=== PATIENT | female | born 1940 | race Caucasian/White ===

== ENCOUNTER 2022-09-15 15:52 | Inpatient (IN) ==
[2022-09-16] MEDS ORDERED: MAGNESIUM SULF RIDER 4 GM/100 ML PREMIX IV PRN (01:35)
[2022-09-16] MEDS ORDERED: MAGNESIUM SULF RIDER 2 GM/50 ML PREMIX IV PRN (01:35)
[2022-09-16] MEDS ORDERED: ONDANSETRON 4 MG/2 ML VIAL IV PRN (01:35)
[2022-09-16] MEDS: cefTRIAXone 1,000 MG in SODIUM CHLORIDE 0.9% 100 ML IV SCH (03:41)
[2022-09-16 07:07] LABS: Basophils % 0.3 % (0.0-0.8); Eosinophils # 0.2 10*3/uL (0.0-0.87); Eosinophils % 2.1 % (0.00-10.9); Hematocrit 32.8 VOL% (35.7-47.0); Immature Granulocytes % 0.3 %; Immature Granulocytes Absolute 0.03 #; Lymphocytes # 1.7 10*3/uL (1.4-4.0); Lymphocytes % 16.4 % (21.3-54.2); Mean Corpuscular HGB Conc 33.5 GM/DL (32-36); Mean Corpuscular Volume 101.9 FL (87-102); Mean Platelet Volume 8.2 FL (9.6-12.0); Monocytes # 1.3 10*3/uL (0.11-0.8); Monocytes % 12.5 % (1.7-12.7); Neutrophils % 68.4 % (38.7-73.9); Platelet Count 214 T/CUMM (130-400); Red Blood Count 3.22 MC/CUMM (3.8-5.5); White Blood Count 10.2 T/CUMM (4-12)
[2022-09-16 07:32] LABS: Albumin 2.5 G/DL (3.4-5.0); Calcium 8.3 MG/DL (8.5-10.1); Osmolality,Calculated 271.8 MOS/KG (273-304); Potassium 2.9 MMOL/L (3.5-5.1); Total Protein 5.8 G/DL (6.4-8.2)
[2022-09-16] MEDS: CLOPIDOGREL 75 MG TABLET PO SCH (09:35)
[2022-09-16] MEDS: EZETIMIBE 10 MG TABLET PO SCH (09:35)
[2022-09-16] MEDS: ENOXAPARIN 40 MG/0.4 ML SYRINGE SUBCUT SCH (09:35)
[2022-09-16] MEDS: METOPROLOL SUCCINATE XL 50 MG TABLET PO SCH (09:35)
[2022-09-16] MEDS: ISOSORBIDE MONONITRATE 60 MG TABLET PO SCH (09:35)
[2022-09-16] MEDS: SIMVASTATIN 40 MG TABLET PO SCH (09:35)
[2022-09-16] MEDS: PANTOPRAZOLE 40 MG TABLET PO SCH (09:35)
[2022-09-16] MEDS: ACETAMINOPHEN 325 MG TABLET PO PRN (09:39)
[2022-09-16] MEDS: FUROSEMIDE 20 MG/2 ML VIAL IV SCH ×2 (10:59→17:23)
[2022-09-16] MEDS: POTASSIUM CHLORIDE 20 MEQ TABLET PO PRN ×3 (12:00→16:20)
[2022-09-17] MEDS: cefTRIAXone 1,000 MG in SODIUM CHLORIDE 0.9% 100 ML IV SCH (03:34)
[2022-09-17 04:33] LABS: Basophils % 0.3 % (0.0-0.8); Eosinophils # 0.2 10*3/uL (0.0-0.87); Eosinophils % 1.8 % (0.00-10.9); Hematocrit 32.6 VOL% (35.7-47.0); Hemoglobin 11.2 GM/DL (12.0-16.0); Immature Granulocytes % 1.9 %; Immature Granulocytes Absolute 0.22 #; Lymphocytes # 2.2 10*3/uL (1.4-4.0); Lymphocytes % 19.4 % (21.3-54.2); Mean Corpuscular HGB Conc 34.4 GM/DL (32-36); Mean Corpuscular Volume 101.6 FL (87-102); Mean Platelet Volume 8.1 FL (9.6-12.0); Monocytes # 1.5 10*3/uL (0.11-0.8); Neutrophils % 63.6 % (38.7-73.9); Platelet Count 252 T/CUMM (130-400); Red Blood Count 3.21 MC/CUMM (3.8-5.5); Red Cell Distribution Width 13.6 % (9.3-17.3); White Blood Count 11.4 T/CUMM (4-12)
[2022-09-17 05:00] LABS: Calcium 8.4 MG/DL (8.5-10.1); Osmolality,Calculated 269.1 MOS/KG (273-304); Potassium 3.3 MMOL/L (3.5-5.1); Risk Ratio 1.92
[2022-09-17] MEDS: SIMVASTATIN 40 MG TABLET PO SCH (08:56)
[2022-09-17] MEDS: ISOSORBIDE MONONITRATE 60 MG TABLET PO SCH (08:56)
[2022-09-17] MEDS: ENOXAPARIN 40 MG/0.4 ML SYRINGE SUBCUT SCH (08:56)
[2022-09-17] MEDS: FUROSEMIDE 20 MG/2 ML VIAL IV SCH ×2 (08:56→17:20)
[2022-09-17] MEDS: PANTOPRAZOLE 40 MG TABLET PO SCH (08:56)
[2022-09-17] MEDS: EZETIMIBE 10 MG TABLET PO SCH (08:56)
[2022-09-17] MEDS: CLOPIDOGREL 75 MG TABLET PO SCH (08:56)
[2022-09-17] MEDS: METOPROLOL SUCCINATE XL 50 MG TABLET PO SCH (08:57)
[2022-09-17] MEDS: CHOLECALCIFEROL 5,000 UNIT TABLET PO SCH ×2 (11:38→20:52)
[2022-09-17] MEDS: ACETAMINOPHEN 325 MG TABLET PO PRN (20:53)
[2022-09-18] MEDS: cefTRIAXone 1,000 MG in SODIUM CHLORIDE 0.9% 100 ML IV SCH (03:06)
[2022-09-18 05:49] LABS: Basophils % 0.2 % (0.0-0.8); Eosinophils # 0.2 10*3/uL (0.0-0.87); Eosinophils % 2.8 % (0.00-10.9); Hematocrit 34.7 VOL% (35.7-47.0); Hemoglobin 11.9 GM/DL (12.0-16.0); Immature Granulocytes % 0.4 %; Immature Granulocytes Absolute 0.03 #; Lymphocytes # 1.8 10*3/uL (1.4-4.0); Lymphocytes % 22.1 % (21.3-54.2); Mean Corpuscular HGB Conc 34.3 GM/DL (32-36); Mean Corpuscular Volume 101.5 FL (87-102); Mean Platelet Volume 8.4 FL (9.6-12.0); Monocytes # 1.2 10*3/uL (0.11-0.8); Monocytes % 14.6 % (1.7-12.7); Neutrophils % 59.9 % (38.7-73.9); Platelet Count 249 T/CUMM (130-400); Red Blood Count 3.42 MC/CUMM (3.8-5.5); Red Cell Distribution Width 13.5 % (9.3-17.3); White Blood Count 8.3 T/CUMM (4-12)
[2022-09-18 05:55] LABS: Calcium 8.3 MG/DL (8.5-10.1); Osmolality,Calculated 267.2 MOS/KG (273-304); Potassium 2.8 MMOL/L (3.5-5.1)
[2022-09-18] MEDS: FUROSEMIDE 20 MG/2 ML VIAL IV SCH (09:45)
[2022-09-18] MEDS: PANTOPRAZOLE 40 MG TABLET PO SCH (09:46)
[2022-09-18] MEDS: CHOLECALCIFEROL 5,000 UNIT TABLET PO SCH ×2 (09:46→21:00)
[2022-09-18] MEDS: EZETIMIBE 10 MG TABLET PO SCH (09:46)
[2022-09-18] MEDS: ENOXAPARIN 40 MG/0.4 ML SYRINGE SUBCUT SCH (09:46)
[2022-09-18] MEDS: METOPROLOL SUCCINATE XL 50 MG TABLET PO SCH (09:46)
[2022-09-18] MEDS: CLOPIDOGREL 75 MG TABLET PO SCH (09:46)
[2022-09-18] MEDS: ISOSORBIDE MONONITRATE 60 MG TABLET PO SCH (09:46)
[2022-09-18] MEDS: SIMVASTATIN 40 MG TABLET PO SCH (09:47)
[2022-09-18] MEDS: POTASSIUM CHLORIDE 20 MEQ TABLET PO PRN (22:58)
[2022-09-18] MEDS: ACETAMINOPHEN 325 MG TABLET PO PRN (22:59)
[2022-09-19] MEDS: cefTRIAXone 1,000 MG in SODIUM CHLORIDE 0.9% 100 ML IV SCH (04:00)
[2022-09-19] MEDS: PANTOPRAZOLE 40 MG TABLET PO SCH (10:00)
[2022-09-19] MEDS: ACETAMINOPHEN 325 MG TABLET PO PRN ×2 (10:01→18:01)
[2022-09-19] MEDS: FUROSEMIDE 20 MG TABLET PO SCH (10:01)
[2022-09-19] MEDS: METOPROLOL SUCCINATE XL 50 MG TABLET PO SCH (10:02)
[2022-09-19] MEDS: SIMVASTATIN 40 MG TABLET PO SCH (10:02)
[2022-09-19] MEDS: CLOPIDOGREL 75 MG TABLET PO SCH (10:03)
[2022-09-19] MEDS: EZETIMIBE 10 MG TABLET PO SCH (10:03)
[2022-09-19] MEDS: ISOSORBIDE MONONITRATE 60 MG TABLET PO SCH (10:03)
[2022-09-19] MEDS: POTASSIUM CHLORIDE 20 MEQ TABLET PO PRN ×4 (10:04→17:58)
[2022-09-19] MEDS: ENOXAPARIN 40 MG/0.4 ML SYRINGE SUBCUT SCH (10:06)
[2022-09-19] MEDS: CHOLECALCIFEROL 5,000 UNIT TABLET PO SCH ×2 (10:07→21:28)
[2022-09-20] MEDS: cefTRIAXone 1,000 MG in SODIUM CHLORIDE 0.9% 100 ML IV SCH (04:05)
[2022-09-20] MEDS: ACETAMINOPHEN 325 MG TABLET PO PRN (04:11)
[2022-09-20] MEDS ORDERED: MAGNESIUM HYDROXIDE SUSP 30 ML UDCUP PO ONE (09:13)
[2022-09-20] MEDS: FUROSEMIDE 20 MG TABLET PO SCH (10:17)
[2022-09-20] MEDS: ISOSORBIDE MONONITRATE 60 MG TABLET PO SCH (10:17)
[2022-09-20] MEDS: SIMVASTATIN 40 MG TABLET PO SCH (10:17)
[2022-09-20] MEDS: EZETIMIBE 10 MG TABLET PO SCH (10:17)
[2022-09-20] MEDS: ENOXAPARIN 40 MG/0.4 ML SYRINGE SUBCUT SCH (10:17)
[2022-09-20] MEDS: PANTOPRAZOLE 40 MG TABLET PO SCH (10:18)
[2022-09-20] MEDS: CLOPIDOGREL 75 MG TABLET PO SCH (10:18)
[2022-09-20] MEDS: CHOLECALCIFEROL 5,000 UNIT TABLET PO SCH ×2 (10:18→21:42)
[2022-09-20] MEDS: METOPROLOL SUCCINATE XL 50 MG TABLET PO SCH (10:18)
[2022-09-20] MEDS ORDERED: POTASSIUM CHLORIDE 20 MEQ TABLET PO ONE (11:15)
[2022-09-20 11:45] LABS: Albumin 2.5 G/DL (3.4-5.0); Bilirubin,Total 1.2 MG/DL (0.20-1.00); Calcium 8.5 MG/DL (8.5-10.1); Osmolality,Calculated 253.2 MOS/KG (273-304); Potassium 4.2 MMOL/L (3.5-5.1); Total Protein 6.9 G/DL (6.4-8.2)
[2022-09-20 12:28] LABS: Folate 10.42 NG/ML (5.38-24.0)
[2022-09-20] MEDS: ZINC OXIDE PASTE 113 GM TUBE TOP SCH (21:40)
[2022-09-21] MEDS: cefTRIAXone 1,000 MG in SODIUM CHLORIDE 0.9% 100 ML IV SCH (03:25)
[2022-09-21 05:07] LABS: Osmolality,Calculated 258.9 MOS/KG (273-304); Potassium 3.6 MMOL/L (3.5-5.1)
[2022-09-21] MEDS ORDERED: VALSARTAN 80 MG TABLET PO SCH (09:00)
[2022-09-21] MEDS: ZINC OXIDE PASTE 113 GM TUBE TOP SCH ×2 (10:35→20:54)
[2022-09-21] MEDS: METOPROLOL SUCCINATE XL 50 MG TABLET PO SCH (11:53)
[2022-09-21] MEDS: SIMVASTATIN 40 MG TABLET PO SCH (11:53)
[2022-09-21] MEDS: ISOSORBIDE MONONITRATE 60 MG TABLET PO SCH (11:53)
[2022-09-21] MEDS: PANTOPRAZOLE 40 MG TABLET PO SCH (11:54)
[2022-09-21] MEDS: ENOXAPARIN 40 MG/0.4 ML SYRINGE SUBCUT SCH (11:54)
[2022-09-21] MEDS: DAPAGLIFLOZIN 10 MG TABLET PO SCH (11:54)
[2022-09-21] MEDS: CLOPIDOGREL 75 MG TABLET PO SCH (11:54)
[2022-09-21] MEDS: EZETIMIBE 10 MG TABLET PO SCH (11:54)
[2022-09-21] MEDS: ACETAMINOPHEN 325 MG TABLET PO PRN ×2 (14:05→19:02)
[2022-09-21] MEDS: CHOLECALCIFEROL 5,000 UNIT TABLET PO SCH ×2 (14:33→20:52)
[2022-09-22] MEDS: cefTRIAXone 1,000 MG in SODIUM CHLORIDE 0.9% 100 ML IV SCH (03:45)
[2022-09-22 05:46] LABS: Calcium 8.4 MG/DL (8.5-10.1); Osmolality,Calculated 257.9 MOS/KG (273-304)
[2022-09-22] MEDS ORDERED: POTASSIUM CHLORIDE 20 MEQ TABLET PO ONE (08:54)
[2022-09-22] MEDS: CLOPIDOGREL 75 MG TABLET PO SCH (09:12)
[2022-09-22] MEDS: ENOXAPARIN 40 MG/0.4 ML SYRINGE SUBCUT SCH (09:12)
[2022-09-22] MEDS: DAPAGLIFLOZIN 10 MG TABLET PO SCH (09:13)
[2022-09-22] MEDS: EZETIMIBE 10 MG TABLET PO SCH (09:13)
[2022-09-22] MEDS: ACETAMINOPHEN 325 MG TABLET PO PRN (09:13)
[2022-09-22] MEDS: ISOSORBIDE MONONITRATE 60 MG TABLET PO SCH (09:13)
[2022-09-22] MEDS: SIMVASTATIN 40 MG TABLET PO SCH (09:13)
[2022-09-22] MEDS: ZINC OXIDE PASTE 113 GM TUBE TOP SCH ×2 (09:14→21:04)
[2022-09-22] MEDS: PANTOPRAZOLE 40 MG TABLET PO SCH (09:14)
[2022-09-22] MEDS: METOPROLOL SUCCINATE XL 50 MG TABLET PO SCH (09:14)
[2022-09-22] MEDS: CHOLECALCIFEROL 5,000 UNIT TABLET PO SCH ×2 (09:40→21:04)
[2022-09-22] MEDS: POTASSIUM CHLORIDE 20 MEQ TABLET PO PRN (12:45)
[2022-09-23] MEDS: cefTRIAXone 1,000 MG in SODIUM CHLORIDE 0.9% 100 ML IV SCH (03:11)
[2022-09-23] MEDS ORDERED: POTASSIUM CHLORIDE 20 MEQ TABLET PO ONE (08:52)
[2022-09-23] MEDS: PANTOPRAZOLE 40 MG TABLET PO SCH (09:56)
[2022-09-23] MEDS: CHOLECALCIFEROL 5,000 UNIT TABLET PO SCH ×2 (09:56→20:26)
[2022-09-23] MEDS: CLOPIDOGREL 75 MG TABLET PO SCH (09:56)
[2022-09-23] MEDS: METOPROLOL SUCCINATE XL 50 MG TABLET PO SCH (09:56)
[2022-09-23] MEDS: EZETIMIBE 10 MG TABLET PO SCH (09:56)
[2022-09-23] MEDS: ENOXAPARIN 40 MG/0.4 ML SYRINGE SUBCUT SCH (09:56)
[2022-09-23] MEDS: DAPAGLIFLOZIN 10 MG TABLET PO SCH (09:56)
[2022-09-23] MEDS: ISOSORBIDE MONONITRATE 60 MG TABLET PO SCH (09:56)
[2022-09-23] MEDS: ZINC OXIDE PASTE 113 GM TUBE TOP SCH ×2 (11:51→20:20)
[2022-09-23] MEDS: ACETAMINOPHEN 325 MG TABLET PO PRN ×2 (14:08→20:26)
[2022-09-24 04:35] LABS: Calcium 8.9 MG/DL (8.5-10.1); Osmolality,Calculated 255.9 MOS/KG (273-304); Potassium 3.6 MMOL/L (3.5-5.1)
[2022-09-24 08:22] VITALS: BP 105/57
[2022-09-24] MEDS: EZETIMIBE 10 MG TABLET PO SCH (09:23)
[2022-09-24] MEDS: METOPROLOL SUCCINATE XL 50 MG TABLET PO SCH (09:23)
[2022-09-24] MEDS: ISOSORBIDE MONONITRATE 60 MG TABLET PO SCH (09:23)
[2022-09-24] MEDS: CLOPIDOGREL 75 MG TABLET PO SCH (09:23)
[2022-09-24] MEDS: PANTOPRAZOLE 40 MG TABLET PO SCH (09:23)
[2022-09-24] MEDS: DAPAGLIFLOZIN 10 MG TABLET PO SCH (09:23)
[2022-09-24] MEDS: ENOXAPARIN 40 MG/0.4 ML SYRINGE SUBCUT SCH (09:23)
[2022-09-24] MEDS: CHOLECALCIFEROL 5,000 UNIT TABLET PO SCH ×2 (09:24→09:47)
[2022-09-24] MEDS: ZINC OXIDE PASTE 113 GM TUBE TOP SCH (09:47)
== END 2022-09-24 14:00 | disposition home health service (06) | DRG 689 ==
LOC: N.TELES → SUATTDRO 09-16 01:35
PROVIDERS: ADMIT Internal Medicine; ATTEND Internal Medicine Geriatric Medicine